=== PATIENT | male | born 1960 | race Caucasian/White ===

== ENCOUNTER → 2018-07-06 09:44 | Emergency (ER) | payer BC, SELFPAY ==
[2018-07-06] MEDS: predniSONE 20 MG TAB 60 MG (10:24)
== END | disposition home or self-care (01) ==
LOC: ER 12:03
PROVIDERS: Emergency Provider Emergency Medicine; PCP Internal Medicine
DX: T63.441A Toxic effect of venom of bees, accidental (unintentional), initial encounter (principal); I10 Essential (primary) hypertension
CPT/HCPCS: 99285; 99284; J7512

== ENCOUNTER 2018-10-18 08:11 | Outpatient (CLI) | payer OTHER, SELFPAY ==
--- NOTE | 2018-10-18 09:41 | HPE_ITS ---
Assessment and Plan (1) Acute meniscal tear of right knee: Current visit: Yes Status: Acute keon declines discusion of knee arthroscpy as he recalls details of previous left sided procedure that predated left tka. Dr. Sahni will perform a right-sided arthroscopy on to address episodic right knee catching and pain. 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 There was no direct impact to his right knee and he does not recall any effusion following the hyperextension stress. His knee pain gradually improved over time with conservative management. He did have an MRI which showed a nondisplaced horizontal tear on the inferior aspect of the posterior horn of the medial meniscus. He had intact ACL and PCL ligaments and a normal lateral meniscus. He describes intermittent episodic times where his knee is acted up about 1 time a month where his knee will seem to catch with discomfort resolving in 2-5 days and only associated with some mild swelling. His gait will return to normal after these catching episodes. He describes some near locking episodes that will resolved with rotation of his lower leg. He has been seen in the office by Dr. Sahni about the sensation of giving way and pain with turning on a planted foot leading to the recommendation for Keon to undergo an arthroscopy with probable partial medial meniscectomy. Keon relates he is well versed on the technique of an arthroscopy as he had one prior to the total knee performed by Dr. Warner on . Pertinent Surgical Information Denies previous medical history of: stroke, TIA, HI, use of sublingual nitroglycerin, GERD, seizures, diabetes, thyroid disease, sleep apnea, liver disease, hepatitis, hematologic disorders Denies previous complications from surgery or anesthesic agents with respect to high fever, prolonged vomiting and difficulty waking up Review of Systems Constitutional Denies fever(s) and Denies headache(s) ENT Denies headache(s) Cardiovascular Denies chest pain, Denies chest pain with activity, Denies palpitations, Denies dyspnea on exertion, Denies orthopnea and Denies paroxysmal nocturnal dyspnea Respiratory Denies dyspnea on exertion and Denies wheezing Gastrointestinal Denies abdominal pain, Denies melena, Denies hematochezia, Reports heartburn, Denies nausea and Denies vomiting Comments: gerd mostly controlled with prilosec,ocas tums needed with dietary indescretion Genitourinary Denies hematuria, Denies dysuria and Denies urinary frequency Comments: Denies burning sensation with urination Musculoskeletal Reports as per HPI Neurologic Denies headache(s) Psychiatric Denies anxiety and Denies depression Endocrine Denies palpitations Comments: Denies any unplanned weight changes Allergic/Immunologic Denies wheezing 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 Smoking/Tobacco Use Status: Never Meds Home Medications Medication Instructions Recorded Confirmed Type allopurinol 100 mg PO DAILY 02/13/14 10/18/18 History aspirin [Aspir-Low] 1 tab PO DAILY 02/13/14 10/18/18 History metoprolol succinate 25 mg PO DAILY 02/13/14 10/18/18 History naproxen 500 mg PO BID PRN 02/13/14 10/18/18 History omeprazole 20 mg PO DAILY 02/13/14 10/18/18 History cholecalciferol (vitamin D3) 400 unit PO DAILY 10/18/18 10/18/18 History [Vitamin D3] losartan 50 mg PO HS 10/18/18 10/18/18 History Allergies Allergy/AdvReac Type Severity Reaction Status Date / Time venom-honey bee Allergy Intermediate Swelling/Ed Unverified 10/18/18 08:22 prabhakar morphine AdvReac Intermediate Nausea Unverified 10/18/18 08:22 Exam Const General: cooperative HENMT Throat: posterior oropharynx normal Eyes General: appearance normal, both eyes and all related structures Conjunctivae: conjunctivae normal Sclera: sclerae normal Neck Neck: no JVD Carotids: normal carotid upstroke and no bruits Resp Effort & Inspection: normal respiratory effort and able to speak in complete sentences Auscultation: clear to auscultation bilaterally, no rales, no rhonchi and no wheezes Cardio Rate: regular rate Heart Sounds: S1 normal, S2 normal and no murmurs Bruits: no abdominal aortic bruits Pulses: normal peripheral pulses Other: No pulsatile mass noted with palpation over the abdominal aorta GI Inspection: other (morbidly obese,protuberant) Palpation: soft and no hepatosplenomegaly Auscultation: normal bowel sounds General: No CVA tenderness Extrem General: no pedal edema Right upper extremity: full ROM Other: Normal sensation to light touch No web space cracks or splits noted. scant effusion,no joint line tenderness or click/pain with lissette test,stable ligaments
--- NOTE | 2018-10-18 10:38 | W.PREOPHP ---
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 Smoking/Tobacco Use Status: Never Meds Home Medications Medication Instructions Recorded Confirmed Type allopurinol 100 mg PO DAILY 02/13/14 10/18/18 History aspirin [Aspir-Low] 1 tab PO DAILY 02/13/14 10/18/18 History metoprolol succinate 25 mg PO DAILY 02/13/14 10/18/18 History naproxen 500 mg PO BID PRN 02/13/14 10/18/18 History omeprazole 20 mg PO DAILY 02/13/14 10/18/18 History cholecalciferol (vitamin D3) 400 unit PO DAILY 10/18/18 10/18/18 History [Vitamin D3] losartan 50 mg PO HS 10/18/18 10/18/18 History Allergies Allergy/AdvReac Type Severity Reaction Status Date / Time venom-honey bee Allergy Intermediate Swelling/Ed Unverified 10/18/18 08:22 prabhakar morphine AdvReac Intermediate Nausea Unverified 10/18/18 08:22
== END 2018-10-18 08:31 ==
PROVIDERS: PCP Internal Medicine; Visit Provider Student in an Organized Health Care Education/Training Program
DX: M25.561 Pain in right knee (principal); S83.206A Unspecified tear of unspecified meniscus, current injury, right knee, initial encounter; Z01.818 Encounter for other preprocedural examination

== ENCOUNTER 2018-10-22 07:58 | Day surgery (SDC) | payer OTHER, SELFPAY ==
[2018-10-22 08:05] VITALS: BP 147/103; PULSE 73; RESP 16; TEMP 36; O2SAT 96
[2018-10-22] MEDS: Lactated Ringers 1,000 ML 80 ML IV (08:35)
[2018-10-22] MEDS: Bupivacaine 0.5% Pres-Free 30 ML VIAL (10:23)
[2018-10-22 11:24] VITALS: BP 93/57; PULSE 55; RESP 12; TEMP 36.3; O2SAT 98
--- NOTE | 2018-10-22 11:24 | W.PM.DSUDISC ---
Discharge Plan Disposition Patient Disposition: HOME Condition: Good Discharge Details Reason For Visit: (R) KNEE MMT Attending Provider: Freddy Sahni Primary Care Provider: Anshul Ramirez Home Meds and New Rx's Prescriptions: New acetaminophen 500 mg capsule 1,000 mg PO Q8H PRN (Reason: pain) Qty: 90 RF: 0 oxycodone 5 mg tablet 2.5 - 5 mg PO Q4H Qty: 12 RF: 0 Continued aspirin [Aspir-Low] 81 MG tablet,delayed release (DR/EC) 1 tab PO DAILY RF: 0 metoprolol succinate 50 MG tablet extended release 24 hr 25 mg PO DAILY RF: 0 allopurinol 100 MG tablet 100 mg PO DAILY RF: 0 omeprazole 20 MG capsule,delayed release(DR/EC) 20 mg PO DAILY RF: 0 cholecalciferol (vitamin D3) [Vitamin D3] 400 unit Capsule 400 unit PO DAILY RF: 0 losartan 50 mg Tablet 50 mg PO HS RF: 0 amoxicillin 500 mg Capsule 2,000 mg PO ONCE RF: 0 naproxen 500 MG tablet 500 mg PO BID PRNQty: 60 RF: 0 Discharge Instructions Stand Alone Forms: Kaitlyn Knee Arthroscopy Equipment/Supplies: Partial Weight Bearing Crutches Activity:: Elevate Remove Dressings/Wound Care:: 72 hours Shower/Bathe:: 72 hours Diet:: As Tolerated Discharge Orders Discharge Orders: Discharge Order (Routine); Ordered 10/22/18 Ordered By: Freddy Sahni DS: Diagnosis Discharge Diagnosis (1) Acute meniscal tear of right knee: Status: Acute
[2018-10-22 11:29] VITALS: BP 95/58; PULSE 60; RESP 13; TEMP 36.4; O2SAT 98
[2018-10-22 11:34] VITALS: BP 113/68; PULSE 72; RESP 16; TEMP 36.5; O2SAT 98
[2018-10-22 11:48] VITALS: BP 122/77; PULSE 68; RESP 17; TEMP 36.5; O2SAT 97
[2018-10-22 12:29] VITALS: BP 118/67; PULSE 54; RESP 18; TEMP 36.4; O2SAT 94
--- NOTE | 2018-10-22 14:30 | ROE_ITS ---
Date of service: 10/22/18 Time of Service: 11:24 Operative Note DATE OF PROCEDURE: 10/22/18 PRE-OP DIAGNOSIS: Right knee medial meniscus tear POST-OP DIAGNOSIS: other (Right complex medial meniscal tear, patellofemoral maltracking, osteoarthritis) PROCEDURE: Right knee arthroscopic partial medial meniscectomy SURGEON: Freddy Sahni ANESTHESIA: GETA ESTIMATED BLOOD LOSS: 0 PATHOLOGY: none sent COMPLICATIONS: None Patient was transported to: PACU Patient's condition: stable Indications: I have seen Temo in clinic for symptoms of a meniscus tear. This was confirmed based on MRI and exam findings. Nonoperative measures were exhausted but disability and pain persisted. I discussed knee arthroscopy with meniscal intervention with the patient. I reviewed the risks of the procedure to include, but not limited to, bleeding, infection, pain, stiffness, damage to nerves or vessels, recurrence, blood clot. Despite these risks, the patient elected to proceed. Findings: A diagnostic arthroscopy was performed with the following findings: Suprapatellar Pouch: Mild inflammatory changes, no loose bodies Medial Compartment: Complex medial meniscal tear in 2 locations, the posterior horn and the anterior horn, intact meniscal root, areas of focal grade IV chondromalacia with some fissures and global grade II chondromalacia, no loose bodies Notch: ACL and PCL were intact Lateral Compartment: No meniscal tear, intact meniscal root, focal arthritic changes seen in both the tibia and the femur, anterior, lateral femur had grade IV chondromalacia with maltracking of the patella laterally on the trochlea, no loose bodies Patellofemoral Compartment: Significant chondromalacia of the trochlea and grade 2/3 changes of the patella Procedure Description: Temo was greeted in the preoperative holding area where the correct side was identified and marked. The consent was reviewed with the p atient and signed. The history and physical was updated. All questions were answered. Temo was taken back to the operating room. The patient was placed into the supine position on the operating room table. A nonsterile tourniquet was placed high onto the leg but not used. All bony prominences were well padded. Prophylactic antibiotics in the form of cefazolin were administered. The right leg was then prepped with Chloraprep and draped in a standard fashion with stockinette and extremity drape. A timeout to confirm correct identity, side and site, procedure, allergies, anesthesia, and medical concerns was performed. The leg was placed into a pneumatic leg fan, [id number]. A standard lateral portal was made at the lateral border of the patella tendon in line with the inferior pole of the patella, soft spot. The skin and deep tissue was incised sharply and the blunt trochar was inserted atraumatically. A diagnostic arthroscopy was performed and the findings are listed above. The suprapatellar pouch had mild inflammatory changes. The patellofemoral articulation showed grade II chondromalacia of the patella and grade IV chondromalacia of the lateral trochlea with lateral tracking. The lateral gutter had no loose bodies and the medial gutter had no loose bodies. The knee was brought into some valgus stress in extension to open the medial compartment. A medial portal was made, localized by a spinal needle. The portal was created with an #11 blade through skin and capsule under direct visualization avoiding any meniscal injury. A probe was then inserted into the medial compartment. The medial compartment was fully inspected. The chondral surface of the tibia showed focal areas of grade IV chondromalacia and global grade II chondromalacia and the surface of the femur showed some minor fissuring and grade II chondromalacia. Osteophytes are present around the medial femur. The medial meniscus had a complex tear involving the posterior horn with a vertical as well as horizontal and radial components. The anterior horn also had what appeared to be a complex horizontal tear. After evaluation, the meniscus was debrided down to a stable base using a series of biters and arthroscopic dennis. It was probed afterwards to confirm that the tear had been removed and the meniscus was stable. All cartilage flaps are relatively stable and therefore I did not debride any cartilage. The notch was then inspected which showed an intact ACL and an intact PCL. The leg was then brought into a figure of 4 position. The lateral compartment was fully inspected with the arthroscope and a probe. The chondral surface of the lateral femur showed grade II chondromalacia. The chondral surface of the lateral tibia showed some fissuring with grade II chondromalacia. The lateral meniscus had no meniscal tear. The arthroscope was brought back into the suprapatellar pouch and the leg was in full extension. The knee was thoroughly irrigated with the arthroscopic fluid on high flow and pressure. Inflow was stopped and excess fluid was removed. The wounds were closed with 4-0 Nylon. They were dressed with Xeroform, 4x4 gauze, ABD pad, Kerlix and an SARAH wrap. A cryo-cuff was applied. The patient tolerated the procedure well and was returned to the [facility] Surgery area in a stable condition suffering no known complication.
== END 2018-10-22 13:05 | disposition home or self-care (01) ==
PROVIDERS: PCP Internal Medicine; Visit Provider Student in an Organized Health Care Education/Training Program
PROC: (CPT 29870; principal; 2018-10-22 09:30)
DX: S83.231A Complex tear of medial meniscus, current injury, right knee, initial encounter (principal); X50.1XXA Overexertion from prolonged static or awkward postures, initial encounter; Y99.0 Civilian activity done for income or pay; M22.2X1 Patellofemoral disorders, right knee; M17.11 Unilateral primary osteoarthritis, right knee; M94.261 Chondromalacia, right knee; M22.41 Chondromalacia patellae, right knee
CPT/HCPCS: 29881; E0114; J0690; J1100; J1885; J2405; J3010

== ENCOUNTER 2019-06-11 16:07 | Outpatient (CLI) | payer OTHER, SELFPAY ==
--- NOTE | 2019-06-11 15:58 | DI.RAD_ITS ---
SYMPTOM/DIAGNOSIS: RIGHT KNEE PAIN RIGHT KNEE Comparison is made with 31 December 2017. There is narrowing and spurring at the patellofemoral joint. There is a small loose body in the superior joint space. There is mild spurring from the femoral condyles and tibial plateaus. No significant joint space narrowing. IMPRESSION: Patellofemoral degenerative changes and suprapatellar loose body.
== END 2019-06-11 16:27 ==
PROVIDERS: PCP Internal Medicine; Visit Provider Student in an Organized Health Care Education/Training Program
DX: M25.561 Pain in right knee (principal); M23.41 Loose body in knee, right knee; M22.2X1 Patellofemoral disorders, right knee
CPT/HCPCS: 73562

== ENCOUNTER 2019-09-06 09:00 | Outpatient (CLI) | payer BC, SELFPAY ==
[2019-09-06 10:11] LABS: Anion Gap 5.6 mmol/L (3-11); BUN 11 mg/dL (7-18); CO2 31.4 mmol/L (21.0-32.0); CREATININE 0.95 mg/dL (0.70-1.30); Calcium 9.2 mg/dL (8.5-10.1); Calculated LDL 103 mg/dL; Chloride 106 mmol/L (98-107); Cholesterol 164 mg/dL (50-200); Glucose 99 mg/dL (70-100); HDL Cholesterol 41 mg/dL (40-60); Potassium 4.6 mmol/L (3.5-5.1); Sodium 143 mmol/L (136-145); Triglyceride 101 mg/dL (30-150)
== END 2019-09-06 09:20 ==
PROVIDERS: PCP Internal Medicine; Visit Provider Internal Medicine
DX: I10 Essential (primary) hypertension (principal); E66.01 Morbid (severe) obesity due to excess calories; Z13.220 Encounter for screening for lipoid disorders
CPT/HCPCS: 36415; 80048; 80061

== ENCOUNTER 2019-09-08 01:28 | Outpatient (CLI) | payer OTHER, SELFPAY ==
--- NOTE | 2019-09-08 15:55 | DI.MRI_ITS ---
EXAM: MR LOWER JOINT RT WO CLINICAL HISTORY: continued R knee pain, h/o meniscal tear and surg S83.206A MENISCAL TEAR RT. TECHNIQUE: Multiplanar multisequence MRI was performed. The exam is limited by patient motion. 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 There is a small joint effusion. The cruciate and collateral ligaments and extensor mechanism appear intact. There are degenerative changes of the patellofemoral joint with cartilage thinning extending down to bone. There is spurring from the femoral condyles a nd tibial plateaus. There is again noted to be some linear increased signal in the posterior horn of the medial meniscus, similar to the previous exam. There is degenerative intrasubstance change of the lateral meniscus. IMPRESSION: Limited exam. There is limited resolution of the menisci. There is a question of a tear of the pos terior horn of the medial meniscus, similar to the previous exam.
== END 2019-09-08 01:48 ==
PROVIDERS: PCP Internal Medicine; Visit Provider Student in an Organized Health Care Education/Training Program
DX: M25.561 Pain in right knee (principal); M71.21 Synovial cyst of popliteal space [Baker], right knee; M25.461 Effusion, right knee; M17.11 Unilateral primary osteoarthritis, right knee; S83.241A Other tear of medial meniscus, current injury, right knee, initial encounter
CPT/HCPCS: 73721

== ENCOUNTER 2020-09-23 21:53 | Outpatient (REF) | payer BC, SELFPAY ==
[2020-09-27 21:50] LABS: Patient Race White; SARS-CoV-2 RNA Undetected (Undetected); SARS-CoV-2 Specimen Source Nasal
== END 2020-09-23 22:13 ==
LOC: NCHCN 21:53
PROVIDERS: PCP Internal Medicine; Visit Provider Internal Medicine
DX: Z20.828 Contact with and (suspected) exposure to other viral communicable diseases (principal)
CPT/HCPCS: U0003

== ENCOUNTER 2021-03-24 20:23 | Outpatient (REF) | payer BC, SELFPAY ==
[2021-03-24 21:10] LABS: Anion Gap 7.4 mmol/L (3-11); BUN 15 mg/dL (7-18); CO2 28.6 mmol/L (21.0-32.0); CREATININE 1.1 mg/dL (0.70-1.30); Calcium 9.6 mg/dL (8.5-10.1); Chloride 105 mmol/L (98-107); Glucose 88 mg/dL (74-106); Potassium 4.3 mmol/L (3.5-5.1); Sodium 141 mmol/L (136-145); Uric Acid 7.3 mg/dL (3.5-7.2)
== END 2021-03-24 20:24 | disposition home or self-care (01) ==
LOC: NCHCN 20:23
PROVIDERS: PCP Internal Medicine; Visit Provider Internal Medicine
DX: I10 Essential (primary) hypertension (principal); M10.9 Gout, unspecified
CPT/HCPCS: 80048; 84550

== ENCOUNTER 2022-01-30 10:16 | Outpatient (REF) | payer BC, SELFPAY ==
[2022-01-30 17:30] LABS: Anion Gap 8.1 mmol/L (3-11); BUN 12 mg/dL (7-18); CO2 27.9 mmol/L (21.0-32.0); Calcium 9.7 mg/dL (8.5-10.1); Chloride 106 mmol/L (98-107); Glucose 90 mg/dL (74-106); Potassium 4.2 mmol/L (3.5-5.1); Sodium 142 mmol/L (136-145)
== END 2022-01-30 10:17 | disposition home or self-care (01) ==
LOC: NCHCN 10:16
PROVIDERS: PCP Internal Medicine; Visit Provider Internal Medicine
DX: I10 Essential (primary) hypertension (principal)
CPT/HCPCS: 80048

== ENCOUNTER 2022-05-01 16:08 | Outpatient (REF) | payer BC, SELFPAY ==
[2022-05-01 15:29] LABS: NT-proBNP 28 pg/mL (<300); Uric Acid 6.1 mg/dL (3.5-7.2)
[2022-05-01 15:50] LABS: D-Dimer 421 ng/mlFEU (<500)
[2022-05-01 21:36] LABS: Anion Gap 11.1 mmol/L (3-11); BUN 16 mg/dL (7-18); CO2 24.9 mmol/L (21.0-32.0); CREATININE 0.9 mg/dL (0.70-1.30); Calcium 9.3 mg/dL (8.5-10.1); Chloride 104 mmol/L (98-107); Glucose 102 mg/dL (74-106); Potassium 4.5 mmol/L (3.5-5.1); Sodium 140 mmol/L (136-145)
== END 2022-05-01 16:09 | disposition home or self-care (01) ==
LOC: NCHCN 16:08
PROVIDERS: PCP Internal Medicine; Visit Provider Internal Medicine
DX: R60.9 Edema, unspecified (principal); R25.2 Cramp and spasm; M17.0 Bilateral primary osteoarthritis of knee; I10 Essential (primary) hypertension; M10.9 Gout, unspecified; R12 Heartburn
CPT/HCPCS: 80048; 83880; 84550; 85379

== ENCOUNTER 2022-12-08 17:49 | Outpatient (REF) | payer BC, SELFPAY ==
[2022-12-08 20:42] LABS: Abs Immature Grans 0.05 10^3/uL (0.0-0.06); Absolute Basophil Count 0.06 10^3/uL (0.0-0.2); Absolute Eosinophil Count 0.28 10^3/uL (0.0-0.7); Absolute Lymphocyte Count 2.34 10^3/uL (1.2-3.4); Absolute Monocyte Count 1.33 10^3/uL (0.1-0.8); Absolute Neutrophil Count 6.11 10^3/uL (1.2-6.7); Basophils % 0.6; Eosinophils % 2.8; HGB 17.2 g/dL (13.5-17.5); Immature Grans % 0.5; MCH 30.6 pg (27.0-33.0); MCHC 33.1 % (32.0-36.0); MCV 92 fL (80-95); MPV 10.5 fL (8.0-11.0); Monocytes % 13.1; Platelet Count 271 10^3/uL (130-400); RBC 5.63 10^6/uL (4.36-5.78); RDW 12.8 % (11.8-14.1); RDW-SD 43.7 fL; WBC 10.17 10^3/uL (4.4-10.8)
[2022-12-08 20:53] LABS: Uric Acid 5.4 mg/dL (3.5-7.2)
== END 2022-12-08 17:50 | disposition home or self-care (01) ==
LOC: NCHCN 17:49
PROVIDERS: PCP Internal Medicine; Visit Provider Family Medicine
DX: R22.9 Localized swelling, mass and lump, unspecified (principal)
CPT/HCPCS: 84550; 85025

== ENCOUNTER 2023-08-28 18:33 | Outpatient (REF) | payer BC, SELFPAY ==
[2023-08-28 21:18] LABS: Anion Gap 6.1 mmol/L (3-11); BUN 17 mg/dL (7-18); CO2 27.9 mmol/L (21.0-32.0); CREATININE 1.1 mg/dL (0.70-1.30); Calcium 9.4 mg/dL (8.5-10.1); Chloride 105 mmol/L (98-107); Estimated GFR 76.37 (mL/min/1.73m2); Glucose 117 mg/dL (74-106); Sodium 139 mmol/L (136-145)
[2023-08-28 21:20] LABS: Hemoglobin A1C 6.1 % (<5.7)
== END 2023-08-28 18:34 | disposition home or self-care (01) ==
LOC: NCHCN 18:33
PROVIDERS: PCP Internal Medicine; Visit Provider Internal Medicine
DX: I10 Essential (primary) hypertension (principal); E66.01 Morbid (severe) obesity due to excess calories
CPT/HCPCS: 80048; 83036

== ENCOUNTER 2023-09-12 11:42 | Outpatient (CLI) | payer BC, SELFPAY ==
--- NOTE | 2023-09-12 10:45 | DI.RAD_ITS ---
Exam(s) XR SHOULDER LT COMPLETE 2+V EXAM: XR SHOULDER LT COMPLETE 2+V CLINICAL HISTORY: shoulder pain. TECHNIQUE: 2D digital imaging was performed of the left shoulder. Two images were obtained. AP, Gr ashey, Y-view and axillary views were obtained. COMPARISON: No exams were available for comparison FINDINGS: BONES: No acute fracture is present. No bony destructive lesion is seen. JOINTS: No dislocation present. The glenohumeral joint is well maintained. Degenerative changes are seen at the acromioclavicular joint. SOFT TISSUE: Normal. IMPRESSION: Degenerative changes of the AC joint. DATA REPOSITORY: RADIATION DOSE DELIVERED:
== END 2023-09-12 11:43 | disposition home or self-care (01) ==
LOC: DIORS 11:42
PROVIDERS: PCP Internal Medicine; Visit Provider Student in an Organized Health Care Education/Training Program
DX: M19.012 Primary osteoarthritis, left shoulder (principal)
CPT/HCPCS: 73030

== ENCOUNTER 2024-09-04 15:42 | Outpatient (REF) | payer BC, SELFPAY ==
[2024-09-04 16:20] LABS: ALT 46 U/L (16-63); AST 27 U/L (15-37); Albumin 3.6 g/dL (3.4-5.0); Alkaline Phosphatase 72 U/L (46-116); Anion Gap 8.1 mmol/L (3-11); BUN 14 mg/dL (7-18); Bilirubin, Total 0.52 mg/dL (0.2-1.0); CO2 28.9 mmol/L (21.0-32.0); CREATININE 0.9 mg/dL (0.70-1.30); Calcium 9.1 mg/dL (8.5-10.1); Chloride 108 mmol/L (98-107); Estimated GFR 96.57 (mL/min/1.73m2); Glucose 112 mg/dL (74-106); LDL CHOLESTEROL 96 mg/dL (<100); Potassium 4.4 mmol/L (3.5-5.1); Sodium 145 mmol/L (136-145); Total Protein 6.9 g/dL (6.4-8.2)
[2024-09-04 17:08] LABS: Hemoglobin A1C 5.9 % (<5.7)
== END 2024-09-04 15:43 | disposition home or self-care (01) ==
LOC: NCHCN 15:42
PROVIDERS: PCP Family Medicine; Visit Provider Family Medicine
DX: Z00.00 Encounter for general adult medical examination without abnormal findings (principal)
CPT/HCPCS: 80053; 83721; 83036

== ENCOUNTER 2025-09-08 10:03 | Outpatient (REF) | payer BC, SELFPAY ==
[2025-09-08 15:29] LABS: HCT 49.7 % (40.0-50.0); HGB 16.6 g/dL (13.5-17.5); MCH 31.1 pg (27.0-33.0); MCHC 33.4 % (32.0-36.0); MCV 93 fL (80-95); MPV 11.2 fL (8.0-11.0); Platelet Count 208 10^3/uL (130-400); RBC 5.34 10^6/uL (4.36-5.78); RDW 13.0 % (11.8-14.1); RDW-SD 44.3 fL; WBC 9.44 10^3/uL (4.4-10.8)
[2025-09-08 15:56] LABS: ALT 65 U/L (16-63); AST 27 U/L (15-37); Albumin 3.7 g/dL (3.4-5.0); Alkaline Phosphatase 71 U/L (46-116); Anion Gap 8.4 mmol/L (3-11); BUN 14 mg/dL (7-18); Bilirubin, Total 0.6 mg/dL (0.2-1.0); CO2 28.6 mmol/L (21.0-32.0); Calcium 9.3 mg/dL (8.5-10.1); Chloride 105 mmol/L (98-107); Glucose 81 mg/dL (74-106); Magnesium 2.0 mg/dL (1.8-2.4); Potassium 4.5 mmol/L (3.5-5.1); Sodium 142 mmol/L (136-145); Total Protein 7.1 g/dL (6.4-8.2); Uric Acid 5.0 mg/dL (3.5-7.2)
[2025-09-09 11:38] LABS: Hepatitis C Ab w Rflx HCV PCR Negative (Negative)
[2025-09-09 13:08] LABS: HIV-1/2 Ag & Ab Screen Negative (Negative)
== END 2025-09-08 10:04 | disposition home or self-care (01) ==
LOC: NCHCN 10:03
PROVIDERS: PCP Family Medicine; Visit Provider Family Medicine
DX: Z00.00 Encounter for general adult medical examination without abnormal findings (principal)
CPT/HCPCS: 80053; 85027; 86803; 87389; 83655; 83735; 84550